=== PATIENT | male | born 1950 | race Caucasian/White ===

== ENCOUNTER 2021-11-20 16:05 | Emergency (ER) | payer BC ==
[~2021-11-20] VITALS: Ht 180.3 cm; Wt 93.0 kg
--- NOTE | 2021-11-20 16:13 | NUR ---
To ER bed 10, from home feeling depressed si w/ bilat wrist lac. self inficted cut on both wrists, aaox3, breathing even and non labored, awaiting md orders
--- NOTE | 2021-11-20 16:32 | NUR ---
[facility] AT BEDSIDE
--- NOTE | 2021-11-20 16:51 | NUR ---
COVID ANTIGEN SWAB DONE AND SENT TO THE LAB
[2021-11-20 17:22] LABS: BASOPHILS % (AUTO) 0.5 % (0.0-2.0); EOSINOPHILS % (AUTO) 3.1 % (0.0-6.0); HEMATOCRIT 43 % (39-51); HEMOGLOBIN 14.7 g/dL (13.5-17.5); LYMPHOCYTES # (AUTO) 1.4 K/uL (0.8-4.8); LYMPHOCYTES % (AUTO) 19.6 % (20.0-44.0); MEAN CORPUSCULAR HGB CONC 34 g/dl (31.0-36.0); MEAN CORPUSCULAR VOLUME 92 fL (80-96); MONOCYTES # (AUTO) 0.6 K/uL (0.1-1.30); MONOCYTES % (AUTO) 8.4 % (2.0-12.0); NEUTROPHILS # (AUTO) 4.8 K/uL (1.8-8.9); NEUTROPHILS % (AUTO) 68.4 % (43.0-81.0); PLATELET COUNT (AUTO) 153 K/uL (150-450)
[2021-11-20 18:03] LABS: CALCIUM, SERUM 9.1 mg/dL (8.5-10.1); CREATININE 1.6 mg/dL (0.6-1.3)
[2021-11-20 18:13] LABS: BILIRUBIN,DIRECT 0.2 mg/dL (0.0-0.2); BILIRUBIN,TOTAL 0.9 mg/dL (0.2-1.0); TOTAL PROTEIN, SERUM 6.9 g/dL (6.4-8.2)
--- NOTE | 2021-11-20 18:13 | NUR ---
URINE COLLECTED AND SENT TO LAB
[2021-11-20] MEDS ORDERED: TRIA1CAP20 PO (18:43)
[2021-11-20] MEDS ORDERED: PREG75CA PO (18:43)
[2021-11-20] MEDS ORDERED: [UNRECOGNIZED DRUG - CODE] PO (18:43)
[2021-11-20] MEDS ORDERED: METO25TA3 PO (18:43)
[2021-11-20] MEDS ORDERED: TADA5TAB2 PO (18:43)
[2021-11-20] MEDS ORDERED: METH750T3 PO (18:43)
[2021-11-20 18:51] LABS: BILIRUBIN,URINE NEGATIVE (NEGATIVE); COLOR,URINE YELLOW (YELLOW); LEUKOCYTE ESTERASE ,URINE NEGATIVE (NEGATIVE); NITRITE, URINE NEGATIVE (NEGATIVE); PROTEIN,URINE NEGATIVE (NEGATIVE); UGLUCOSE NEGATIVE (NEGATIVE); UROBILINOGEN,URINE 0.2 EU/dL (0.2)
--- NOTE | 2021-11-20 18:56 | NUR ---
FAXED CLINICALS TO PRAS[facility]EROS ([phone]), ESTEVAN LAURENT([phone]), AND [facility] ([phone])
--- NOTE | 2021-11-20 22:47 | NUR ---
THOMAS DAUGHTER'S NUMBER
--- NOTE | 2021-11-21 07:55 | NUR ---
THE PATIENT IS RECEIVED IN ER BED #13. THE PATIENT IS ALERT AND ORIENTED X4. DENIES PAIN. IN ROOM AIR AND DENIES SOB. RESPIRATION REGULAR AND UNLABORED. WILL CONTINUE TO MONITOR THE PATIENT.
--- NOTE | 2021-11-21 08:24 | NUR ---
SPOKE TO [facility] [phone], CLINICALS PROVIDED. WILL LOOK FOR ACCEPTING MD AND WILL CALL US BACK FOR DETAILS
--- NOTE | 2021-11-21 09:10 | NUR ---
FAXED HOLD TO [facility] [phone]
[2021-11-21 09:25] VITALS: BP 146/78
--- NOTE | 2021-11-21 09:49 | NUR ---
Faxed clinicals to [facility] [fax: [phone], tele: [phone]], [facility] [fax: [phone], tele: [phone]], [facility] [fax: [phone], tele: [phone]].
--- NOTE | 2021-11-21 10:14 | NUR ---
spoke to akilah at [facility]. accepted dr dr polo going to intake so will arrange transport
--- NOTE | 2021-11-21 10:15 | NUR ---
[facility]: Reviewing packet. [facility]: Reviewing packet. [facility]: Does not take pt.'s over 65. [facility]- no beds available.
--- NOTE | 2021-11-21 10:17 | NUR ---
[facility] CALLED FOR TRANSPORT ETA 60 MINS PER [facility].
--- NOTE | 2021-11-21 10:27 | NUR ---
[facility] [address], [place] [address]
--- NOTE | 2021-11-21 11:14 | NUR ---
THE PATIENT`S THOMAS DAUGHTER IS MADE AWARE OF TRANSFER.
--- NOTE | 2021-11-21 11:14 | NUR ---
REPORT GIVEN TO AMBULANCE STAFF
--- NOTE | 2021-11-21 11:53 | NUR ---
The patient is transfered to [place] via arranged transpo.
== END 2021-11-21 11:55 ==
LOC: ER 16:10
DX: S61.512A Laceration without foreign body of left wrist, initial encounter (principal); S61.511A Laceration without foreign body of right wrist, initial encounter; X78.9XXA Intentional self-harm by unspecified sharp object, initial encounter; Y92.012 Bathroom of single-family (private) house as the place of occurrence of the external cause; Z20.822 Contact with and (suspected) exposure to COVID-19; F32.A Depression, unspecified; Z85.46 Personal history of malignant neoplasm of prostate; R94.31 Abnormal electrocardiogram [ECG] [EKG]
CPT/HCPCS: 12002; 36415; 80048; 80076; 80143; 80307; 80320; 81003; 85025; 87426; 93005; 99285; C9803; G0480